=== PATIENT | female | born 1945 | race African-American/Black ===

== ENCOUNTER 2018-10-10 00:28 | Emergency (ER) | payer OTHER ==
[~2018-10-10] VITALS: Ht 162.6 cm; Wt 90.7 kg
[2018-10-10 01:12] LABS: ABSOLUTE NEUTROPHILS 2.5 thou/uL (1.4-8.2); BASOPHILS 0.9 % (0.0-2.0); EOSINOPHILS 2.5 % (0.0-3.0); HEMATOCRIT 39.2 % (37.0-47.0); HEMOGLOBIN 12.5 gm/dL (12.0-15.0); MCH 29.7 pg (26.0-34.0); MONOCYTES 7.7 % (1.0-8.0); PLATELET COUNT 191 thou/uL (150-400); POLYS 52.9 % (36.0-66.0); RBC 4.21 mil/uL (4.20-5.00); RDW 13.2 % (10.5-14.5); WBC 4.7 thou/uL (4.0-11.0)
[2018-10-10 01:14] LABS: ANION GAP 11 mmol/L (7-16); BUN 16 mg/dL (7-18); CALCIUM 9.5 mg/dL (8.5-10.1); CHLORIDE 106 mmol/L (98-107); CO2 25 mmol/L (21-32); CREATININE 0.9 mg/dL (0.6-1.0); GLUCOSE 139 mg/dL (74-106); POTASSIUM 3.9 mmol/L (3.5-5.1); SODIUM 142 mmol/L (136-145)
[2018-10-10 01:24] LABS: MAGNESIUM 2.1 mg/dL (1.8-2.4); TROPONIN-I <0.06 ng/mL (<0.06)
[2018-10-10] MEDS ORDERED: GLUCOPHAGE500 MG PO (01:55)
[2018-10-10] MEDS ORDERED: ZIAC 10-6.25 M1 EACH PO (01:56)
[2018-10-10 02:31] LABS: URINE BILIRUBIN NEGATIVE (Negative); URINE BLOOD NEGATIVE (Negative); URINE CLARITY CLEAR; URINE COLOR YELLOW; URINE GLUCOSE-RANDOM* NEGATIVE (Negative); URINE KETONES NEGATIVE (Negative); URINE LEUKOCYTES-REFLEX NEGATIVE (Negative); URINE NITRITE-REFLEX NEGATIVE (Negative); URINE PROTEIN (DIPSTICK) NEGATIVE (Negative); URINE SPECIFIC GRAVITY 1.015 (1.005-1.035); URINE UROBILINOGEN 0.2 E.U./dl (0.2-1.0)
[2018-10-10] MEDS ORDERED: VERTICALM25 MG PO (02:49)
[2018-10-10 02:55] VITALS: BP 151/70
--- NOTE | 2018-10-10 08:50 | EKG ---
[place] [address] [employer] [facility] [place] [address] ELECTROCARDIOGRAM REPORT Name: MADDIE MUÑOZ [facility] [id number] ������������������ Admission: 10/10/18 ������������������ Attend Phys: Discharge: 10/10/18 ������������������ Date of : 49 Report #: [id number] ����������������������������������������������������������������� [id number] THIS REPORT FOR: //name// [facility] ED Test Date: 2018-10-10 Test Time: 01:50:33 Pat Name: MADDIE MUÑOZ Department: Room: Gender: F [employer]: juan : 1945 Requested By: Duke Knox Order Number: [id number] MD: Chapincito Raygoza Measurements Intervals [place] Rate: 66 P: 36 DE: 167 QRS: 33 QRSD: 76 T: 159 QT: 604 QTc: 634 Interpretive Statements Sinus rhythm Nonspecific T abnormalities Prolonged QT interval No previous ECG available for comparison Electronically Signed On 10-10-2018 8:50:06 CDT by Chapincito Raygoza [email or web address] ��������������������������������������������� <ELECTRONICALLY SIGNED> ���������������������������������������� By: Chapincito Raygoza MD, [facility] ��������������������������������������������� 10/10/18 0850 0150 0150 Chapincito Raygoza MD, FACC /EPI
== END 2018-10-10 02:56 | disposition home or self-care (01) ==
LOC: ER 00:28
PROVIDERS: Emergency Medicine
DX: R42 Dizziness and giddiness (principal); E11.9 Type 2 diabetes mellitus without complications; Z88.2 Allergy status to sulfonamides